=== PATIENT | male | born 1990 | race Caucasian/White ===

== ENCOUNTER 2023-05-07 20:32 | Emergency (ER) | payer BC, SELFPAY ==
[2023-05-07 20:51] VITALS: BP 131/72; PULSE 71; RESP 16; TEMP 37.3; O2SAT 98; BMI 30.7
--- NOTE | 2023-05-07 21:00 | ED_ITS ---
HPI - General Adult General Chief complaint: Eye Problems Stated complaint: redness around eyes, sore throat, Time Seen by Provider: 05/07/23 20:53 History of Present Illness HPI narrative: This 32-year-old male comes in reporting sore throat for 2 days and some redness and discharge from both eyes. He has not had any fevers or cough or shortness of breath. Related Data Home Medications Medication Instructions Recorded Confirmed No Known Home Medications 05/07/23 05/07/23 Allergies Allergy/AdvReac Type Severity Reaction Status Date / Time No Known Drug Allergies Allergy Verified 05/07/23 20:53 Review of Systems Status of ROS: Reports: 10 or more systems reviewed and unremarkable except as noted in History and below Narrative: Constitutional: No fevers, no weight gain or loss. Eyes: No vision changes. Erythema and matting discharge. HENT: No congestion, no ear pain. He reports a sore throat. Cardiovascular: No chest pain, no palpitations. Respiratory: No shortness of breath, no wheezes, no cough. Gastrointestinal: No abdominal pain, no vomiting, no diarrhea. Genitourinary: No dysuria, no hematuria. Musculoskeletal: Normal range of motion. Skin: No rashes, no pruritis. Neurological: No dizziness, weakness, sensory change, speech change. Endo/Heme/Allergies: No bruising or bleeding. No polydipsia. Pysch: no suicidality, no anxiety, no insomnia. All other systems reviewed and are negative. Exam Narrative: Exam Narrative: Constitutional: Well-developed, well-nourished, no acute distress. HEENT: Normocephalic, atraumatic. Pharyngeal erythema without exudate or tonsillar hypertrophy. Eyes have bilateral erythema with evidence of purulent discharge. Neck: Normal range of motion. Nontender. Supple. Heart: Regular. No murmurs. Normal rate. Intact distal pulses. Lungs: Clear to auscultation. No chest discomfort. No wheezes, rhonchi, or rales. Abdomen: Normal bowel sounds. Nontender. No rebound tenderness. Genitalia: Deferred. Back: No midline tenderness. Normal range of motion. Extremities: Normal range of motion. No injury. Skin: Intact. No rash. Warm. No erythema or pallor. Neurologic: No altered sensation. No weakness. Alert and oriented. Psychiatric: No suicidality. No anxiety or depression. No insomnia. Nursing notes and vitals signs are reviewed. Const: Vital Signs, click to edit/add: Vital Signs - 24 hr 05/07/23 20:51 Temperature 99.1 F Pulse Rate [Left P ulse Oximeter] 71 Respiratory Rate 16 Blood Pressure [Ri ght Upper Arm] 131/72 Pulse Oximetry 98 Course Vital Signs Vital signs: Initial Vital Signs Temperature 99.1 F 05/07/23 20:51 Temperature Source Temporal Artery Scan 05/07/23 20:51 Pulse Rate 71 05/07/23 20:51 Respiratory Rate 16 05/07/23 20:51 Blood Pressure 131/72 05/07/23 20:51 Blood Pressure Mean 91 05/07/23 20:51 Blood Pressure Position Sitting 05/07/23 20:51 Pulse Oximetry 98 05/07/23 20:51 Vital Signs Temperature 99.1 F 05/07/23 20:51 Pulse Rate 71 05/07/23 20:51 Respiratory Rate 16 05/07/23 20:51 Blood Pressure 131/72 05/07/23 20:51 Pulse Oximetry 98 05/07/23 20:51 Temperature 99.1 F 05/07/23 20:51 Pulse Rate 71 05/07/23 20:51 Respiratory Rate 16 05/07/23 20:51 Blood Pressure 131/72 05/07/23 20:51 Pulse Oximetry 98 05/07/23 20:51 Medical Decision Making MDM Narrative Medical decision making narrative: This patient comes in with symptoms of conjunctivitis and also has a sore throat. He did receive a prescription for gentamicin ophthalmic solution and a strep test is ordered. The strep test is not yet resulted and the overnight physician will treat if it returns positive. He is otherwise okay to return home. Discharge Plan Discharge Clinical Impression: Bacterial conjunctivitis, Pharyngitis Patient Disposition: Home, Self-Care Condition: Unchanged Additional Instructions: Take medication as prescribed. Follow up with MD return if worsening. Prescriptions: No Action No Known Home Medications Stand Alone Forms: [employer] Instructions
--- NOTE | 2023-05-07 21:12 | ED.NURSE ---
genatmycin 1 drop q4 hour each eye for 3-5d. MD chaney script written and label placed on pt med to take home.
[2023-05-07 21:45] LABS: Strep A DNA Probe* NOT DETECTED (Not Detectd)
--- NOTE | 2023-05-07 21:54 | ED.NURSE ---
Patient contacted by phone and was notified of negative results.
== END 2023-05-07 21:56 | disposition home or self-care (01) ==
PROVIDERS: Emergency Provider Emergency Medicine Emergency Medical Services
DX: H10.023 Other mucopurulent conjunctivitis, bilateral (principal); J02.9 Acute pharyngitis, unspecified
CPT/HCPCS: 87651; 99284; A9270